=== PATIENT | male | born 1990 | race Caucasian/White ===

== ENCOUNTER → 2017-11-16 | Outpatient (CLI) | payer BC ==
--- NOTE | 2017-11-16 23:14 | MR ---
EXAMINATION TYPE: MR lumbar spine wo con DATE OF EXAM: 11/16/2017 COMPARISON: NONE HISTORY: Radiculopathy, lumbar region TECHNIQUE: Multiplanar, multisequence images of the lumbar spine were acquired. There is 1 cm anterior subluxation of L5 in relation S1. There is bilateral L5 spondylolysis. There i s moderate narrowing of L5-S1 disc space. There is posterior disc herniation at L3-4 on the right michael e with mild impingement on the lateral recess. There is no compression fracture. There is no paraspin al mass. The visualized sacroiliac joints appear intact. IMPRESSION: Bilateral L5 spondylolysis with 1st to 2nd degree L5-S1 spondylolisthesis. No significant spinal sten osis. Bilateral L5-S1 neural foraminal stenosis due to subluxation deformity. Posterior right-sided L3-4 lumbar disc herniation. Moderate narrowing of L5-S1 disc space.
== END | disposition home or self-care (01) ==
LOC: RADMRIMAIN 18:19
PROVIDERS: ATTEND Family Medicine
DX: M48.07 Spinal stenosis, lumbosacral region (principal); M51.16 Intervertebral disc disorders with radiculopathy, lumbar region; M43.17 Spondylolisthesis, lumbosacral region; M47.26 Other spondylosis with radiculopathy, lumbar region; M99.73 Connective tissue and disc stenosis of intervertebral foramina of lumbar region
CPT/HCPCS: 72148

== ENCOUNTER 2024-08-02 05:35 | Emergency (ER) | payer BC ==
[2024-08-02 05:45] VITALS: RESP 19
--- NOTE | 2024-08-02 06:39 | ED ---
Animal Bite HPI - General Chief Complaint: Animal Bite Stated Complaint: Dog Bite Time Seen by Provider: 08/02/24 05:54 Source: patient, RN notes reviewed Mode of arrival: ambulatory Limitations: no limitations - History of Present Illness Initial Comments: 34-year-old male presents emerged part chief complaint of right hand and left arm dog bite. He states this happened 48 hours ago by his friend dog. The dog is up-to-date on vaccines. Patient is unsure when his last tetanus was. Patient is concerned about possible infection he has multiple puncture wounds to his right hand and left wrist region. He states there is some redness and discomfort but he has full range of motion. Denies paresthesias. - Related Data Previous Rx's Medication Instructions Recorded Amoxic-Pot Clav 875-125Mg 1 tab PO Q12HR #20 tab 08/02/24 [Augmentin 875-125] Allergies Allergy/AdvReac Type Severity Reaction Status Date / Time No Known Allergies Allergy Verified 08/02/24 05:42 Review of Systems ROS Statement: Those systems with pertinent positive or pertinent negative responses have been documented in the HPI. ROS Other: All systems not noted in ROS Statement are negative. Past Medical History Past Medical History: No Reported History History of Any Multi-Drug Resistant Organisms: None Reported Past Surgical History: No Surgical Hx Reported Past Psychological History: No Psychological Hx Reported Smoking Status: Current every day smoker Past Alcohol Use History: None Reported Past Drug Use History: Marijuana General Exam Limitations: no limitations General appearance: alert, in no apparent distress Head exam: Present: atraumatic, normocephalic, normal inspection Respiratory exam: Present: normal lung sounds bilaterally. Absent: respiratory distress, wheezes, rales, rhonchi, stridor Cardiovascular Exam: Present: normal rhythm, tachycardia, normal heart sounds. Absent: systolic murmur, diastolic murmur, rubs, gallop, clicks Extremities exam: Present: other (Right hand in the thenar eminence region and right thumb there is multiple puncture wounds there is surrounding erythema with no purulent drainage currently there is no erythema extends past the proximal hand region patient has full range of motion neurovascular intact there is small puncture wound ) Course Vital Signs 08/02/24 08/02/24 05:42 06:54 Temperature 97.4 F L 97.6 F Pulse Rate 109 H 91 Respiratory 19 19 Rate Blood Pressure 146/101 130/91 O2 Sat by Pulse 99 99 Oximetry Medical Decision Making - Medical Decision Making Was pt. sent in by a medical professional or institution (RIGOBERTO Colon, TANK TENDER, urgent care, hospital, or prison...) When possible be specific @ -No Did you speak to anyone other than the patient for history (EMS, parent, family, police, friend...)? What history was obtained from this source @ -No Did you review nursing and triage notes (agree or disagree)? Why? @ -I reviewed and agree with nursing and triage notes Were old charts reviewed (outside hosp., previous admission, EMS record, old EKG, old radiological studies, urgent care reports/EKG's, prison records)? Report findings @ -No old charts were reviewed Differential Diagnosis (chest pain, altered mental status, abdominal pain women, abdominal pain men, vaginal bleeding, weakness, fever, dyspnea, syncope, headache, dizziness, GI bleed, back pain, seizure, CVA, palpatations, mental health, musculoskeletal)? @ -Dog bite, infected dog bite, cellulitis, EKG interpreted by me (3pts min.). @ -As above X-rays interpreted by me (1pt min.). @ -X-ray right hand no acute abnormality no foreign body no bony lesions CT interpreted by me (1pt min.). @ -None done U/S interpreted by me (1pt. min.). @ -None done What testing was considered but not performed or refused? (CT, X-rays, U/S, labs)? Why? @ -None What meds were considered but not given or refused? Why? @ -None Did you discuss the management of the patient with other professionals (dennis gonzales i.e. RIGOBERTO Colon, TANK TENDER, lab, RT, psych nurse, medical social consultant, seafood and service meat manager, teacher, president and chief executive officer, case loader operator)? Give summary @ -No Was smoking cessation discussed for >3mins.? @ -No Was critical care preformed (if so, how long)? @ -No Were there social determinants of health that impacted care today? How? (Homelessness, low income, unemployed, alcoholism, drug addiction, transportation, low edu. Level, literacy, decrease access to med. care, alf, rehab)? @ -No Was there de-escalation of care discussed even if they declined (Discuss DNR or withdrawal of care, Hospice)? DNR status @ -No What co-morbidities impacted this encounter? (DM, HTN, Smoking, COPD, CAD, Cancer, CVA, ARF, Chemo, Hep., AIDS, mental health diagnosis, sleep apnea, morbid obesity)? @ -None Was patient admitted / discharged? Hospital course, mention meds given and route, prescriptions, significant lab abnormalities, going to OR and other pertinent info. @ -Discharge patient presenting for dog bite 48 hours ago tetanus was updated patient was given Rocephin, Augmentin. Patient discharged on Augmentin advised he needs to have close follow-up and strict return parameters given signs of early infection. Undiagnosed new problem with uncertain prognosis? @ -No Drug Therapy requiring intensive monitoring for toxicity (Heparin, Nitro, Insulin, Cardizem)? @ -No Were any procedures done? @ -No Diagnosis/symptom? @ -Dog bite Acute, or Chronic, or Acute on Chronic? @ -Acute Uncomplicated (without systemic symptoms) or Complicated (systemic symptoms)? @Complicated Side effects of treatment? @ -No Exacerbation, Progression, or Severe Exacerbation? @ -No Poses a threat to life or bodily function? How? (Chest pain, [place], [place], pneumonia, PE, COPD, DKA, ARF, appy, cholecystitis, CVA, Diverticulitis, Homicidal, Suicidal, threat to staff... and all critical care pts) @ -No Disposition Clinical Impression: Dog bite Disposition: HOME SELF-CARE Condition: Stable Instructions (If sedation given, give patient instructions): Animal Bite (ED) Additional Instructions: Please return to the Emergency Department if symptoms worsen or any other concerns. Prescriptions: Amoxic-Pot Clav 875-125Mg [Augmentin 875-125] 1 tab PO Q12HR #20 tab Is patient prescribed a controlled substance at d/c from ED?: No Referrals: None,Stated [Primary Care Provider] - 1-2 days Time of Disposition: 06:39
[2024-08-02] MEDS: AMOXIC-POT CLAV 875-125MG 1 EACH TAB PO STA (06:44)
[2024-08-02] MEDS: cefTRIAXone 1,000 MG VIAL (IM USE) IM STA (06:46)
[2024-08-02] MEDS: DIPH,PERTUS(ACELL)TETVAC-LF 0.5 ML VIAL IM ONE (06:47)
[2024-08-02 06:56] VITALS: BP 130/91; PULSE 91; TEMP 97.6
--- NOTE | 2024-08-02 08:20 | XR ---
EXAMINATION TYPE: XR hand complete RT DATE OF EXAM: 08/02/2024 6:20 AM CLINICAL INDICATION: Male, 34 years old with history of dog bite; [facility] COMPARISON: None TECHNIQUE: XR hand complete RT Frontal, lateral and oblique views were obtained. FINDINGS: Remote fracture with Bohler angulation of the fifth metacarpal. Soft tissue swelling withou t radiopaque foreign body. Normal alignment of the visualized joints. No acute osseous pathology is identified. No evidence of soft tissue swelling. No significant degeneration IMPRESSION: 1. No radiopaque foreign body, No acute osseous pathology. 2. Remote fracture of the fifth metacarpal. [facility], , 08/02/2024 8:17 AM
== END 2024-08-02 06:55 | disposition home or self-care (01) ==
LOC: EC 05:35
CPT/HCPCS: 90471; 90715; 96372; 99283

== ENCOUNTER 2024-09-26 19:00 | Emergency (ER) | payer BC, OTHER ==
[2024-09-26 19:09] VITALS: TEMP 97.6
[2024-09-26] MEDS: ASPIRIN 81 MG PO STA (19:31)
[2024-09-26] MEDS: FAMOTIDINE 20 MG/2 ML VIAL IV STA (19:31)
[2024-09-26] MEDS: SODIUM CHLORIDE 0.9% 500 ML 500 ML IV STA (19:33)
[2024-09-26 19:36] LABS: Basophils % (A) 0 %; Eosinophils # (A) 0.2 k/uL (0-0.7); Eosinophils % (A) 1 %; HCT 54.7 % (39.0-53.0); HGB 18.4 gm/dL (13.0-17.5); Lymphocytes # (A) 1.5 k/uL (1.0-4.8); Lymphocytes % (A) 12 %; MCH 31.3 pg (25.0-35.0); MCHC 33.6 g/dL (31.0-37.0); MCV 93.1 fL (80.0-100.0); Mean Platelet Volume 7.3; Monocytes # (A) 0.7 k/uL (0-1.0); Monocytes % (A) 5 %; Neutrophils # (A) 9.9 k/uL (1.3-7.7); Neutrophils % (A) 80 %; Platelet Count 314 k/uL (150-450); RBC 5.87 m/uL (4.30-5.90); RDW 11.7 % (11.5-15.5); WBC 12.4 k/uL (3.8-10.6)
[2024-09-26 19:47] LABS: ALT 32 U/L (4-49); AST 29 U/L (17-59); African American GFR (CKD) >90 (>60 ml/min/1.73 sqM); Albumin 4.8 g/dL (3.5-5.0); Alkaline Phosphatase 100 U/L (38-126); Anion Gap 8 mmol/L; Blood Urea Nitrogen 13 mg/dL (9-20); Calcium 9.6 mg/dL (8.4-10.2); Carbon Dioxide 31 mmol/L (22-30); Chloride 99 mmol/L (98-107); Glucose 137 mg/dL (74-99); Lipase 42 U/L (23-300); Non-African American GFR(CKD) >90 (>60 ml/min/1.73 sqM); Sodium 138 mmol/L (137-145); Total Bilirubin 1.4 mg/dL (0.2-1.3); Total Protein 8.1 g/dL (6.3-8.2)
[2024-09-26 20:00] LABS: INR 0.9 (<1.2); Partial Thromboplastin Time 27.6 sec (22.0-30.0); Prothrombin Time 10.3 sec (10.0-12.5)
--- NOTE | 2024-09-26 20:10 | ED ---
Chest Pain HPI - General Chief Complaint: Chest Pain Stated Complaint: Chest pain, vomiting Time Seen by Provider: 09/26/24 19:11 Source: patient Mode of arrival: ambulatory Limitations: no limitations - History of Present Illness Initial Comments: 34-year-old male presenting with chief complaint of chest pain. Has been ongoing for a day and a half. States that it feels like someone is twisting a knife but is also a burning sensation. He also admits to nausea and vomiting. Worse upon exertion. States that he is vomiting shortly after eating and has been able to keep down little over the past day. No extremity swelling. Patient is a current everyday smoker, smokes 10 cigarettes per day. Denies alcohol or drug use. No abdominal pain, fever, chills, cough, congestion, sore throat. - Related Data Home Medications Medication Instructions Recorded Confirmed Lisdexamfetamine Dimesylate 40 mg PO DAILY 09/26/24 09/26/24 [Vyvanse] Previous Rx's Medication Instructions Recorded Omeprazole 20 mg PO DAILY #20 cap 09/26/24 Ondansetron Odt [Zofran Odt] 4 mg PO Q8HR PRN #20 tab 09/26/24 Allergies Allergy/AdvReac Type Severity Reaction Status Date / Time No Known Allergies Allergy Verified 09/26/24 20:20 Review of Systems ROS Statement: Those systems with pertinent positive or pertinent negative responses have been documented in the HPI. ROS Other: All systems not noted in ROS Statement are negative. EKG Findings - EKG Comments: EKG Findings:: Sinus rhythm ventricular rate 91. DE interval 140. QRS 90. 5 1. Q[address] No ST deviation Past Medical History Past Medical History: No Reported History History of Any Multi-Drug Resistant Organisms: None Reported Past Surgical History: No Surgical Hx Reported Past Psychological History: No Psychological Hx Reported Smoking Status: Current every day smoker Past Alcohol Use History: None Reported Past Drug Use History: Marijuana General Exam Limitations: no limitations General appearance: alert, in no apparent distress Head exam: Present: atraumatic, normocephalic, normal inspection Eye exam: Present: normal appearance, EOMI Neck exam: Present: normal inspection. Absent: meningismus Respiratory exam: Present: normal lung sounds bilaterally. Absent: respiratory distress, wheezes, rales, rhonchi, stridor Cardiovascular Exam: Present: regular rate, normal rhythm, normal heart sounds. Absent: systolic murmur, diastolic murmur, rubs, gallop, clicks GI/Abdominal exam: Present: soft, normal bowel sounds. Absent: distended, t enderness, guarding, rebound, rigid Extremities exam: Absent: pedal edema Neurological exam: Present: alert, oriented X3 Psychiatric exam: Present: normal affect, normal mood Skin exam: Present: warm, dry Course Vital Signs 09/26/24 09/26/24 19:06 22:11 Temperature 97.6 F Pulse Rate 107 H 110 H Respiratory 20 18 Rate Blood Pressure 124/91 130/96 O2 Sat by Pulse 99 97 Oximetry Chest Pain MDM - MDM Was pt. sent in by a medical professional or institution (, PA, JUNIOR FINANCIAL ANALYST, urgent care, hospital, or residential...) When possible be specific @ -No Did you speak to anyone other than the patient for history (EMS, parent, family, police, friend...)? What history was obtained from this source @ -No Did you review nursing and triage notes (agree or disagree)? Why? @ -I reviewed and agree with nursing and triage notes Were old charts reviewed (outside hosp., previous admission, EMS record, old EKG, old radiological studies, urgent care reports/EKG's, residential records)? Report findings @ -No old charts were reviewed Differential Diagnosis (chest pain, altered mental status, abdominal pain women, abdominal pain men, vaginal bleeding, weakness, fever, dyspnea, syncope, headache, dizziness, GI bleed, back pain, seizure, CVA, palpatations, mental health, musculoskeletal)? @ -[facility] Differential Chest Pain: Stable Angina, Unstable Angina, STEMI, NSTEMI Aortic Dissection, Pneumothorax, Musculoskeletal, Esophageal Spasm GERD, Cholecystitis, Pancreatitis, Zoster This is not meant to be an all-inclusive list. EKG interpreted by me (3pts min.). @ -As above X-rays interpreted by me (1pt min.). @ -Chest x-ray shows no acute cardiopulmonary disease/process CT interpreted by me (1pt min.). @ -CT shows no evidence of pulmonary embolism. Esophageal circumferential thickening correlate for esophagitis U/S interpreted by me (1pt. min.). @ -None done What testing was considered but not performed or refused? (CT, X-rays, U/S, labs)? Why? @ -None What meds were considered but not given or refused? Why? @ -None Did you discuss the management of the patient with other professionals (professionals i.e. , PA, JUNIOR FINANCIAL ANALYST, lab, RT, psych nurse, social work coordinator, audio visual engineer, teacher, juvenile corrections officer, case finisher)? Give summary @ -No Was smoking cessation discussed for >3mins.? @ -No Was critical care preformed (if so, how long)? @ -No Were there social determinants of health that impacted care today? How? (Homelessness, low income, unemployed, alcoholism, drug addiction, transportation, low edu. Level, literacy, decrease access to med. care, [facility]ci, rehab)? @ -No Was there de-escalation of care discussed even if they declined (Discuss DNR or withdrawal of care, Hospice)? DNR status @ -No What co-morbidities impacted this encounter? (DM, HTN, Smoking, COPD, CAD, Cancer, CVA, ARF, Chemo, Hep., AIDS, mental health diagnosis, sleep apnea, morbid obesity)? @ -None Was patient admitted / discharged? Hospital course, mention meds given and route, prescriptions, significant lab abnormalities, going to OR and other pertinent info. @ -34-year-old male presenting with chief complaint of chest pain nausea and vomiting. States that he took Pepto-Bismol like usually when this did not seem to help. History and physical examination are conducted. 1.2, likely reactive. Hemoglobin 18.4 and hematocrit 54.7, concentrated likely somewhat dehydrated. Negative troponin. Lipase is WNL. Chest x-ray shows no acute process. EKG shows no acute ischemic process. D-dimer 0.72. CTA is negative for pulmonary embolism. There is circumferential esophageal thickening. Given patient's heartburn-like pain and vomiting this does correlate with esophagitis. On reassessment the patient reports significant improvement, he was given Pepcid and aspirin. I educated the patient on the findings today. He reports that he has had previous scopes done. Does not currently have a PCP or GI. Provided with referral to PCP and GI for follow-up. Discharged. Follow-up with PCP. Report back to ER with any new or worsening symptoms. Discussed return parameters and answered all questions. Patient conveyed verbal understanding and agreed to the plan. I discussed this case in detail with my attending Dr. Landers Undiagnosed new problem with uncertain prognosis? @ -No Drug Therapy requiring intensive monitoring for toxicity (Heparin, Nitro, Insulin, Cardizem)? @ -No Were any procedures done? @ -No Diagnosis/symptom? @ -Esophagitis Acute, or Chronic, or Acute on Chronic? @ -Acute Uncomplicated (without systemic symptoms) or Complicated (systemic symptoms)? @ -complicated Side effects of treatment? @ -No Exacerbation, Progression, or Severe Exacerbation? @ -No Poses a threat to life or bodily function? How? (Chest pain, [place], [place], pneumonia, PE, COPD, DKA, ARF, appy, cholecystitis, CVA, Diverticulitis, Homicidal, Suicidal, threat to staff... and all critical care pts) @ -Low likelihood Disposition Clinical Impression: Esophagitis Disposition: HOME SELF-CARE Condition: Good Instructions (If sedation given, give patient instructions): Esophagitis (ED) Additional Instructions: Follow-up with PCP and GI. You may need a scope to evaluate the inflammation in your esophagus. Report back to ER with any new or worsening symptoms. Prescriptions: Omeprazole 20 mg PO DAILY #20 cap Ondansetron Odt [Zofran Odt] 4 mg PO Q8HR PRN #20 tab PRN Reason: Nausea Is patient prescribed a controlled substance at d/c from ED?: No Referrals: None,Stated [Primary Care Provider] - 1-2 days Jenny Pitt MD [STAFF PHYSICIAN] - 1-2 days Tomer Nichols MD [STAFF PHYSICIAN] - 1-2 days Time of Disposition: 21:57
--- NOTE | 2024-09-26 20:25 | XR ---
EXAMINATION TYPE: XR chest 2V DATE OF EXAM: 09/26/2024 7:46 PM COMPARISON: None CLINICAL INDICATION: Male, 34 years old with history of Chest Pain; TECHNIQUE: XR chest 2V Frontal and lateral views of the chest. FINDINGS: Lungs/Pleura: There is no evidence of pleural effusion, focal consolidation, or pneumothorax. Pulmonary vascularity: Unremarkable. Heart/mediastinum: Cardiomediastinal silhouette is unremarkable. Musculoskeletal: No acute osseous pathology. IMPRESSION: No acute cardiopulmonary disease/process. [facility], , 09/26/2024 8:22 PM
--- NOTE | 2024-09-26 21:34 | CT ---
EXAMINATION TYPE: CT chest angio for PE DATE OF EXAM: 09/26/2024 9:28 PM COMPARISON: Chest radiograph from same day. . CLINICAL INDICATION: Male, 34 years old with history of chest pain; Chest pain, positive dimer TECHNIQUE/CONTRAST: CTA scan of the thorax is performed with IV Contrast, patient injected with 80 mL of Isovue 370, MIP images are created and reviewed these are created on a separate workstation.. CT DLP: 478.6 mGycm, Automated exposure control for dose reduction was used. FINDINGS: Lungs/Pleura: No evidence of focal consolidation, pleural effusion or pneumothorax. Airway: Large airways are patent. Heart: Heart is within normal limits for size. Vasculature: There is no evidence for a filling defect within the pulmonary vasculature to suggest ac nito pulmonary embolism. The pulmonary artery is of normal size. Mediastinum: No gross evidence of adenopathy. Circumferential thickening of the distal esophagus Musculoskeletal: No acute osseous abnormalities Soft Tissues/lymph nodes: Unremarkable. Lower neck: No significant findings. Upper Abdomen: No significant findings. IMPRESSION: 1. No evidence of pulmonary embolism. 2. Esophageal circumferential thickening correlate for esophagitis. [facility], , 09/26/2024 9:32 PM
[2024-09-26 22:13] VITALS: BP 130/96; PULSE 110; RESP 18
== END 2024-09-26 22:13 | disposition home or self-care (01) ==
LOC: EC 19:00
DX: K20.90 Esophagitis, unspecified without bleeding (principal); F17.210 Nicotine dependence, cigarettes, uncomplicated
CPT/HCPCS: 36415; 93005; 85379; 80053; 83690; 83735; 84484; 85025; 85610; 85730; 71046; 71275; 99285; 96374; J3490; Q9967

== ENCOUNTER 2025-04-28 16:42 | Emergency (ER) | payer OTHER ==
--- NOTE | 2025-04-28 17:13 | ED ---
Male Urogenital HPI - General Chief complaint: Urogenital Stated complaint: Urogenital Time Seen by Provider: 04/28/25 16:57 Source: patient, RN notes reviewed, old records reviewed Mode of arrival: ambulatory Limitations: no limitations - History of Present Illness Initial comments: This is a 35 male to the ER for evaluation patient presents today for evaluation of severe groin plain feels like he has pain in his right testicle also having persistent pain in his right flank maybe earlier today. The pain is significantly in the scrotum currently. Positive nausea. Positive vomiting sudden onset of pain and patient is diaphoretic here in the ER Complaint: testicle pain -: hour(s) Location: right testicle Radiation: none Severity: severe Severity scale (1-10): 10 Quality: sharp Consistency: constant Improves with: none Worsens with: none Reports: denies other symptoms - Related Data Home Medications Medication Instructions Recorded Confirmed Lisdexamfetamine Dimesylate 40 mg PO DAILY 09/26/24 09/26/24 [Vyvanse] Previous Rx's Medication Instructions Recorded Omeprazole 20 mg PO DAILY #20 cap 09/26/24 Ondansetron Odt [Zofran Odt] 4 mg PO Q8HR PRN #20 tab 09/26/24 Allergies Allergy/AdvReac Type Severity Reaction Status Date / Time No Known Allergies Allergy Verified 04/28/25 16:51 Review of Systems ROS Statement: Those systems with pertinent positive or pertinent negative responses have been documented in the HPI. ROS Other: All systems not noted in ROS Statement are negative. Past Medical History Past Medical History: No Reported History History of Any Multi-Drug Resistant Organisms: None Reported Past Surgical History: No Surgical Hx Reported Past Psychological History: No Psychological Hx Reported Smoking Status: Current every day smoker Past Alcohol Use History: None Reported Past Drug Use History: Marijuana General Exam Limitations: no limitations General appearance: alert, in no apparent distress Head exam: Present: atraumatic, normocephalic, normal inspection Eye exam: Present: normal appearance, PERRL, EOMI. Absent: scleral icterus, conjunctival injection, periorbital swelling ENT exam: Present: normal exam, mucous membranes moist Neck exam: Present: normal inspection. Absent: tenderness, meningismus, lymphadenopathy Respiratory exam: Present: normal lung sounds bilaterally. Absent: respiratory distress, wheezes, rales, rhonchi, stridor Cardiovascular Exam: Present: regular rate, normal rhythm, normal heart sounds. Absent: systolic murmur, diastolic murmur, rubs, gallop, clicks GI/Abdominal exam: Present: soft, normal bowel sounds. Absent: distended, tenderness, guarding, rebound, rigid Extremities exam: Present: normal inspection, full ROM, normal capillary refill. Absent: tenderness, pedal edema, joint swelling, calf tenderness Back exam: Present: normal inspection Neurological exam: Present: alert, oriented X3, CN II-XII intact Psychiatric exam: Present: normal affect, normal mood Skin exam: Present: warm, dry, intact, normal color. Absent: rash Course Vital Signs 04/28/25 16:48 Temperature 96.8 F L Pulse Rate 79 Respiratory 18 Rate Blood Pressure 167/118 O2 Sat by Pulse 98 Oximetry - Reevaluation(s) Reevaluation #1: 04/28/25 19:13 Medical records reviewed Reevaluation #2: 04/28/25 19:13 Patient symptoms improved here in the ER Reevaluation #3: 04/28/25 19:13 Patient informed of results and questions answered Reevaluation #4: Was pt. sent in by a medical professional or institution (, PA, PHYS THER, urgent care, hospital, or group home...) When possible be specific @ -no Did you speak to anyone other than the patient for history (EMS, parent, family, police, friend...)? What history was obtained from this source @ -no Did you review nursing and triage notes (agree or disagree)? Why? @ -agree Are old charts reviewed (outside hosp., previous admission, EMS record, old EKG, old radiological studies, urgent care reports/EKG's, group home records)? Report findings @ -yes Differential Diagnosis (chest pain, altered mental status, abdominal pain women, abdominal pain men, vaginal bleeding, weakness, fever, dyspnea, syncope, headache, dizziness, GI bleed, back pain, seizure, CVA, palpatations, mental health, musculoskeletal)? @ -prior EKG interpreted by me (3pts min.). @ -yes X-rays interpreted by me (1pt min.). @ -yes negative for acute disease CT interpreted by me (1pt min.). @ -no U/S interpreted by me (1pt. min.). @ -no What testing was considered but not performed or refused? (CT, X-rays, U/S, labs)? Why? @ -none What meds were considered but not given or refused? Why? @ -none Did you discuss the management of the patient with other professionals (professionals i.e. , PA, PHYS THER, lab, RT, psych nurse, director social service, software development engineer, teacher, forest officer, briefcase sewer)? Give summary @ -no Was smoking cessation discussed for >3mins.? @ -no Was critical care preformed (if so, how long)? @ -no Were there social determinants of health that impacted care today? How? (Homelessness, low income, unemployed, alcoholism, drug addiction, transportation, low edu. Level, literacy, decrease access to med. care, [place] [facility], rehab)? @ -none Was there de-escalation of care discussed even if they declined (Discuss DNR or withdrawal of care, Hospice)? DNR status @ -no What co-morbidities impacted this encounter? (DM, HTN, Smoking, COPD, CAD, Cancer, CVA, ARF, Chemo, Hep., AIDS, mental health diagnosis, sleep apnea, morbid obesity)? @ -none Was patient admitted / discharged? Hospital course, mention meds given and route, prescriptions, significant lab abnormalities, going to OR and other pertinent info. @ - Undiagnosed new problem with uncertain prognosis? @ -no Drug Therapy requiring intensive monitoring for toxicity (Heparin, Nitro, Insulin, Cardizem)? @ -no Were any procedures done? @ -no Diagnosis/symptom? @ - Acute, or Chronic, or Acute on Chronic? @ -Acute Uncomplicated (without systemic symptoms) or Complicated (systemic symptoms)? @ -Complicated Side effects of treatment? @ -no Exacerbation, Progression, or Severe Exacerbation? @ -exacerbation Poses a threat to life or bodily function? How? (Chest pain, [place], [place], pneumonia, PE, COPD, DKA, ARF, appy, cholecystitis, CVA, Diverticulitis, Homicidal, Suicidal, threat to staff... and all critical care pts) @ -yes Reevaluation #5: Differential Abdominal Pain Men: Appendicitis, cholecystitis, diverticulosis, ischemic bowel, pancreatitis, hepatitis, UTI, gastroenteritis, AAA, incarcerated hernia, bowel obstruction, constipation, inflammatory bowel, hepatitis, peptic ulcer disease, splenic infarction, perforated viscus, testicular torsion, this is not meant to be an all-inclusive list Medical Decision Making - Medical Decision Making 35 male to ER for evaluation of severe right-sided flank pain groin pain, ultrasound scrotum negative CT abdomen pelvis positive kidney stone passed. Patient can be discharged home - Lab Data Result diagrams: 04/28/25 17:49 04/28/25 17:49 Lab Results 04/28/25 04/28/25 04/28/25 Range/Units 17:41 17:49 17:49 WBC 18.67 H (4.50-10.00) 10*3/uL RBC 5.48 (4.40-5.60) 10*6/uL Hgb 17.5 H (13.0-17.0) g/dL Hct 49.1 (39.6-50.0) % MCV 89.6 (80.0-97.0) fL MCH 31.9 (27.0-32.0) pg MCHC 35.6 (32.0-37.0) g/dL Plt Count 310 (140-440) 10*3/uL MPV 10.3 (9.5-12.2) fL Immature Gran % (Auto) 0.5 % Neutrophils % 85.4 % Lymphocytes % 9.0 % Monocytes % 4.0 % Eosinophils % 0.7 % Basophils % 0.4 % Immature Gran # 0.09 H (0.00-0.04) 10*3/uL Neutrophils # 15.95 H (1.80-7.70) 10*3/uL Lymphocytes # 1.68 (0.90-5.00) 10*3/uL Monocytes # 0.75 (0.20-1.00) 10*3/uL Eosinophils # 0.13 (0.04-0.35) 10*3/uL Basophils # 0.07 (0.00-0.10) 10*3/uL Sodium 141 (137-145) mmol/L Potassium 4.9 (3.5-5.1) mmol/L Chloride 102 (98-107) mmol/L Carbon Dioxide 25 (22-30) mmol/L Anion Gap 14 mmol/L BUN 10 (9-20) mg/dL Creatinine 0.99 (0.66-1.25) mg/dL Est GFR (CKD-EPI)AfAm >90 (>60 ml/min/1.73 sqM) Est GFR (CKD-EPI)NonAf >90 (>60 ml/min/1.73 sqM) Glucose 149 H (74-99) mg/dL Calcium 9.9 (8.4-10.2) mg/dL Total Bilirubin 1.6 H (0.2-1.3) mg/dL AST 58 (17-59) U/L ALT 35 (4-49) U/L Alkaline Phosphatase 75 (38-126) U/L Total Protein 8.9 H (6.3-8.2) g/dL Albumin 5.3 H (3.5-5.0) g/dL Amylase 51 (30-110) U/L Lipase 40 (23-300) U/L Urine Color Yellow Urine Appearance Clear (Clear) Urine pH 5.5 (5.0-8.0) Ur Specific Home 1.035 (1.001-1.035) Urine Protein Trace H (Negative) Urine Glucose (UA) Negative (Negative) Urine Ketones Negative (Negative) Urine Blood Negative (Negative) Urine Nitrite Negative (Negative) Urine Bilirubin Negative (Negative) Urine Urobilinogen 2.0 (<2.0) mg/dL Ur Leukocyte Esterase Trace H (Negative) Urine WBC 5 (0-5) /hpf Urine Mucus Few H (None) /hpf - Radiology Data Radiology results: report reviewed (CT abdomen pelvis positive kidney stone passed a bladder), image reviewed Disposition Clinical Impression: Kidney stone on right side Disposition: HOME SELF-CARE Condition: Good Instructions (If sedation given, give patient instructions): Kidney Stones (ED) Is patient prescribed a controlled substance at d/c from ED?: No Referrals: [facility] [NON-STAFF] - 1-2 days [facility] [NON-STAFF] - 1-2 days (Contact a primary care office to become established with a provider. ) None,Stated [Primary Care Provider] - 1-2 days Forms: Area PCPs Time of Disposition: 19:00
--- NOTE | 2025-04-28 17:30 | US ---
EXAMINATION TYPE: US scrotum with doppler. DATE OF EXAM: 04/28/2025 COMPARISON: NONE CLINICAL INDICATION: Male, 35 years old with history of pain,torsion; extreme right side testicle wilberto n that started 1 hour ago, no injury, no swelling TECHNIQUE: Grayscale, color Doppler and spectral Doppler imaging of the scrotum. FINDINGS: EXAM MEASUREMENTS: TESTICLES: Right Testicle: 3.8 x 2.8 x 2.3 cm Left Testicle: 4.1 x 3.0 x 2.2 cm EPIDIDYMIS HEAD: Right Epididymis: 1.7 cm - 1.3 x 1.1 x 1.1cm epi cyst right at area of patients complaint Left Epididymis: 1.4 cm Doppler performed to assess for testicular vascularity; good bilateral color flow and spectral wavefo kenny are seen. There is no evidence of testicular torsion. Presence of hydroceles: no Presence of varicoceles: no Simple right epididymal head cyst measuring 1.3 cm. IMPRESSION: 1. No evidence for acute process. 2. No evidence for intratesticular mass. 3. Appropriate arterial and venous spectral waveforms to the testes. No evidence for testicular tors ion. 4. Simple right epididymal head cyst measuring 1.3 cm. [facility], , 04/28/2025 5:28 PM
[2025-04-28] MEDS: KETOROLAC 15 MG/ML 1 ML VIAL IVP STA (17:53)
[2025-04-28] MEDS: SODIUM CHLORIDE 0.9% 1,000 ML IV SCH (17:55)
[2025-04-28] MEDS: ONDANSETRON 4 MG/2 ML VIAL IVP STA (17:57)
[2025-04-28] MEDS: HYDROmorphone 1 MG/ML 1 ML SYRINGE IVP STA (17:57)
[2025-04-28 17:58] LABS: Basophils # (A) 0.07 10*3/uL (0.00-0.10); Basophils % (A) 0.4 %; Eosinophils # (A) 0.13 10*3/uL (0.04-0.35); Eosinophils % (A) 0.7 %; HCT 49.1 % (39.6-50.0); HGB 17.5 g/dL (13.0-17.0); Lymphocytes # (A) 1.68 10*3/uL (0.90-5.00); MCH 31.9 pg (27.0-32.0); MCHC 35.6 g/dL (32.0-37.0); MCV 89.6 fL (80.0-97.0); Mean Platelet Volume 10.3 fL (9.5-12.2); Monocytes # (A) 0.75 10*3/uL (0.20-1.00); Neutrophils # (A) 15.95 10*3/uL (1.80-7.70); Neutrophils % (A) 85.4 %; Platelet Count 310 10*3/uL (140-440); RBC 5.48 10*6/uL (4.40-5.60); RDW 11.6 % (11.5-14.5); WBC 18.67 10*3/uL (4.50-10.00)
[2025-04-28 18:09] LABS: Appearance,Urine Clear (Clear); Bilirubin,Urine Negative (Negative); Blood,Urine Negative (Negative); Color,Urine Yellow; Glucose,Urine (UA) Negative (Negative); Ketones,Urine Negative (Negative); Leukocyte Esterase,Urine Trace (Negative); Mucus,Urine Few /hpf; Nitrite,Urine Negative (Negative); PH, Urine 5.5 (5.0-8.0); Protein,Urine Trace (Negative); Specific Gravity,Urine 1.035 (1.001-1.035); WBC,Urine 5 /hpf (0-5)
[2025-04-28 18:12] LABS: ALT 35 U/L (4-49); African American GFR (CKD) >90 (>60 ml/min/1.73 sqM); Amylase 51 U/L (30-110); Anion Gap 14 mmol/L; Blood Urea Nitrogen 10 mg/dL (9-20); Calcium 9.9 mg/dL (8.4-10.2); Carbon Dioxide 25 mmol/L (22-30); Chloride 102 mmol/L (98-107); Lipase 40 U/L (23-300); Non-African American GFR(CKD) >90 (>60 ml/min/1.73 sqM); Sodium 141 mmol/L (137-145)
[2025-04-28 18:22] LABS: AST 58 U/L (17-59); Albumin 5.3 g/dL (3.5-5.0); Alkaline Phosphatase 75 U/L (38-126); Glucose 149 mg/dL (74-99); Potassium 4.9 mmol/L (3.5-5.1); Total Bilirubin 1.6 mg/dL (0.2-1.3); Total Protein 8.9 g/dL (6.3-8.2)
--- NOTE | 2025-04-28 18:55 | CT ---
EXAMINATION TYPE: CT abdomen pelvis wo con DATE OF EXAM: 04/28/2025 6:10 PM COMPARISON: None. CLINICAL INDICATION: Male, 35 years old with history of abdominal pain, generalized pain, urogenital pain TECHNIQUE: Axial images with sagittal coronal reformats. Examination of the solid and hollow viscera is limited given the lack of contrast. CT DLP: 964 mGycm, Automated exposure control for dose reduction was used. FINDINGS: LUNG BASES: No evidence for nodule. No evidence for infiltrate. LIVER/GB: The gallbladder is unremarkable. No space-occupying hepatic lesion. PANCREAS: No pancreatic mass identified. No inflammatory process seen. SPLEEN: No evidence for splenomegaly. No intrasplenic lesions seen. ADRENALS: No adrenal nodules identified. No evidence for thickening. KIDNEYS: 3 mm right UVJ calculus resulting in mild hydronephrosis. The stone has nearly passed into t he urinary bladder. 8 mm nonobstructing calculus lower pole right kidney. No additional calculi noted . BOWEL: Appendix has a normal appearance. No evidence of bowel obstruction. No inflammatory process. Lymph nodes: No evidence for adenopathy greater than 1 cm. Abdominal aorta: Atheromatous changes seen. No evidence for aneurysm. Genital organs: No significant abnormality. Other: No significant abnormality. IMPRESSION: 3 MM RIGHT UVJ CALCULUS ISN'T ENTIRELY PASSED INTO THE URINARY BLADDER AND RESULTS IN MILD HYDRONEPHR OSIS. [facility], , 04/28/2025 6:53 PM
[2025-04-28] MEDS: TAMSULOSIN 0.4 MG CAP.ER.24H PO STA (19:30)
[2025-04-28] MEDS: traMADol 50 MG STARTER PACK 3 TAB BTL PO STA (19:32)
[2025-04-28 19:54] VITALS: BP 148/98; PULSE 68; RESP 17; TEMP 98.7
== END 2025-04-28 19:54 | disposition home or self-care (01) ==
LOC: EC 16:42
DX: N13.2 Hydronephrosis with renal and ureteral calculous obstruction (principal); F17.200 Nicotine dependence, unspecified, uncomplicated
CPT/HCPCS: 36415; 80053; 82150; 83690; 85025; 81001; 93975; 76870; 74176; 99284; 96374; 96375 ×2; 96361 ×2; J2405; J1171; J1885